=== PATIENT | female | born 1990 | race African-American/Black ===

== ENCOUNTER 2016-12-13 17:18 | Emergency (ER) | payer OTHER ==
[~2016-12-13 17:18] MED LIST: AUGMENTIN 875-1 EAC2 PO; COMPAZINE10 MG PO; IBUPROFEN200 M3 PO; IBUPROFEN400 M1 PO; NO HOME MEDICATION XX; NORCO 5-325 TA1 EACH PO; NORCO 5/325 TAB1 TAB PO; PEPCID20 MG PO; PERCOCET 5-3251 EACH PO; PROAIR HFA8.5 GM IH
[2016-12-13] MEDS ORDERED: CYCLOBENZAPRINE10 M1 PO (19:33)
== END 2016-12-13 19:41 ==
LOC: EDMED 17:18
DX: S09.90XA Unspecified injury of head, initial encounter (principal); S16.1XXA Strain of muscle, fascia and tendon at neck level, initial encounter; V49.50XA Passenger injured in collision with unspecified motor vehicles in traffic accident, initial encounter; Y92.410 Unspecified street and highway as the place of occurrence of the external cause

== ENCOUNTER 2017-01-25 22:32 | Emergency (ER) | payer SELFPAY ==
[~2017-01-25 22:32] MED LIST changes: +CYCLOBENZAPRINE10 M1 PO
[2017-01-26] MEDS ORDERED: PENICILLIN V P500 M1 PO (00:30)
[2017-01-26] MEDS ORDERED: NORCO 5/3251 TAB PO (00:30)
== END 2017-01-26 00:43 ==
LOC: EDMED 22:32
DX: K04.01 Reversible pulpitis (principal); F17.290 Nicotine dependence, other tobacco product, uncomplicated